=== PATIENT | female | born 1955 | race Caucasian/White ===

== ENCOUNTER 2021-03-28 07:56 | Emergency (ER) | payer MEDICARE, SELFPAY ==
--- NOTE | ~2021-03-28 | XR_ITS ---
EXAMINATION: XR hand RT min 3V DATE: 03/28/2021 09:02 INDICATION: Right thumb dog bite. TECHNIQUE: 3 views of right hand were obtained. COMPARISON: Right wrist radiograph 12/06/2006 FINDINGS: Bone alignment is normal. No fracture. There is mild osteoarthritis of triscaphe joint, fir st carpometacarpal joint, and some of the interphalangeal joints. There is moderate osteoarthritis of fourth distal interphalangeal joint. IMPRESSION: 1. No fracture or radiopaque foreign body. 2. Polyarticular osteoarthritis. Reviewed, dictated and finalized at location A.
[2021-03-28 08:15] VITALS: BP 110/94; PULSE 71; RESP 18; TEMP 36.2; O2SAT 97
--- NOTE | 2021-03-28 08:49 | ED.ANIMALBIT ---
HPI - Animal Bite General Chief Complaint: Animal Bite Stated Complaint: dog bite Time Seen by Provider: 03/28/21 08:48 Source: patient Mode of arrival: ambulatory Limitations: no limitations History of Present Illness HPI narrative: Patient is 65 years old white female had a dog bite to right hand 2-hour prior to arrival. Patient was trying to stop dog bite got bitten by her dog. No other injuries. Unknown last tetanus. No history of diabetes. Related Data Home Medications Medication Instructions Recorded Confirmed atorvastatin 20 mg PO 03/28/21 ergocalciferol (vitamin D2) 1,250 mcg PO 03/28/21 Allergies Allergy/AdvReac Type Severity Reaction Status Date / Time aspirin Allergy Unknown Unknown Verified 03/28/21 08:23 Review of Systems Review of Systems: Narrative: CONSTITUTIONAL: Denies fever, chills, or sweats. EYES: Denies visual changes, redness, or discharge. ENT: Denies rhinorrhea, congestion, sore throat, or otalgia. CARDIOVASCULAR: Denies chest pain, palpitations, or edema. RESPIRATORY: Denies cough or dyspnea. GASTROINTESTINAL: Denies abdominal pain, nausea, vomiting, or diarrhea. GENITOURINARY: Denies dysuria or hematuria. SKIN: Denies rash or itching. MUSCULOSKELETAL: Denies back pain, joint pain, or myalgia. NEUROLOGIC: Denies headache, numbness, or weakness. PSYCHIATRIC: Denies anxiety or depression. [facility] Social History Social History Alcohol intake: current Gender identity (if verbalized by the patient): Female Exam Narrative: Exam Narrative: General appearance: Well-developed, well-nourished Skin: Right hand exam showed multiple puncture wounds dorsally and 2.5 laceration and the palmar side, subcutaneous. Patient is able to flex and extend fingers without any limitation. Vascular: Normal peripheral pulses, normal capillary refill. Musculoskeletal: Normal range of motion, nontender back Neurologic: Alert and oriented ?3, [employer] W[employer]IC[employer] is normal as tested, no gross motor deficit Course Course Emergency Course: Stable Vital Signs Vital signs: Vital Signs Temperature 36.2 C L 03/28/21 08:15 Pulse Rate 71 03/28/21 08:15 Respiratory Rate 18 03/28/21 08:15 Blood Pressure 110/94 H 03/28/21 08:15 Pulse Oximetry 97 03/28/21 08:15 Temperature 36.2 C L 03/28/21 08:15 Pulse Rate 71 03/28/21 08:15 Respiratory Rate 18 03/28/21 08:15 Blood Pressure 110/94 H 03/28/21 08:15 Pulse Oximetry 97 03/28/21 08:15 MDM - Animal Bite MDM Narrative Medical decision making narrative: Patient presents with dog bites puncture wounds and lacerations. The plan to irrigate the bites, tetanus shot, Augmentin. Then discharged to follow-up with Dr. Prater Differential Diagnosis Differential diagnosis: Likely dog bite and other (Bone fracture) Imaging Data Radiologist's impression: Impressions Hand X-Ray 03/28/21 09:09 IMPRESSION: 1. No fracture or radiopaque foreign body. 2. Polyarticular osteoarthritis. Critical Care Time Critical Care Time Critical Care Time: No Discharge Plan Discharge Clinical Impression: Dog bite Qualifiers: Encounter type: initial encounter Qualified Code(s): W54.0XXA - Bitten by dog, initial encounter Patient Disposition: Home, Self-Care Condition: Stable Instructions: Animal Bite (ED) Additional Instructions: Return if symptoms are worsening , call your family physician for appointment, take Tylenol as as needed for aches and pain, continue home medications., Keep right hand elevated, call Dr. Prater for appointment, do not cover the dog bite Prescriptions: New amoxicillin-pot clavulanate [
[2021-03-28] MEDS: TETANUS,DIPHTHERIA,AC PERTUSSIS ADULT (0.5 ML) BOOSTRIX IM (09:35)
[2021-03-28] MEDS: AMOXICILLIN/CLAVULANATE K 875-125 MG TAB 1 TABLET PO (09:35)
[2021-03-28 11:39] VITALS: BP 109/91; PULSE 69; RESP 18; O2SAT 97
== END 2021-03-28 11:40 | disposition home or self-care (01) ==
LOC: ANHED 09:19
PROVIDERS: Emergency Provider Emergency Medicine
DX: S61.451A Open bite of right hand, initial encounter (principal); M19.041 Primary osteoarthritis, right hand; W54.0XXA Bitten by dog, initial encounter; Z23 Encounter for immunization
CPT/HCPCS: 73130; 90471; 90715; 99283; A9270

== ENCOUNTER 2023-02-11 01:15 | Day surgery (SDC) | payer MEDICARE, SELFPAY ==
[2023-02-03 12:06] VITALS: BMI 23.8
--- NOTE | 2023-02-03 12:19 | PC.NURSE ---
Report to the Outpatient Waiting Room, entrance under the green pavilion located off [facility], at time __7:30AM on date ___02/11/23____. Planned Procedure Time: __9:30AM . Time changes happen often and if your time is changed the preop area will call you the afternoon before. - You and your visitor will be asked to self-screen and do not enter if you have any COVID symptoms. - Only one visitor is requested with a max of two and NO children visitors are allowed at this time. - The patient visitor may be requested to leave or wait in car when not with patient due to distancing restrictions. - A mask is optional within the hospital at this time. Patients may have clear liquids (water, carbonated beverages, clear teas, apple juice) until 3 hours prior to surgery with a maximum of 20 ounces. - No food from midnight until time of surgery Take the following medications with a SIP of water the morning of surgery: ___NONE DO NOT STOP ANY OF YOUR OTHER PRESCRIPTION MEDICATIONS PRIOR TO SURGERY ?EXCEPT THE FOLLOWING Medications to discontinue per physician ____HOLD NAPROXEN FOR 5 DAYS PRE-OP PER DR DOBBINS(PER PATIENT) Date to take last dose____02/05/23 Please no make-up, nail wallisian, hairspray, perfume, deodorant, or body powder the day of surgery. No jewelry (including any body piercings) or valuables the day of surgery, leave them at home. Please take a shower or bath the night before, or the morning of, surgery with an antibacterial soap. Wear comfortable, loose fitting clothing. Children are encouraged to wear pajamas. - Jewelry must be removed prior to entering the operating room. Rings and piercings that are not removed may be cut off. - The hospital will not accept responsibility for valuables. - Please leave all valuables, including medications, at home the day of surgery. If you are going home after surgery, a licensed utility worker driver must drive you home. - NO public transportation without another adult if you receive anesthesia. - We recommend that an adult stay with you for 24 hours following discharge. - We also recommend that you do not drive, make important decision, drink alcoholic beverages, or take any drugs that were not prescribed by your health care provider for at least 24 hours after your discharge time. Follow any additional instructions given to you from your surgeon. If you or anyone in your household have experienced Covid symptoms in the past week, please notify your surgeon or the nurse liaison at the phone number below for possible testing. Telephone instructions given to _PATIENT and asked if any additional questions and then verbalized understanding. Patient advised to call surgeon office or pre surgery nurse liaison [phone] if any additional questions.
--- NOTE | 2023-02-10 09:58 | P.PNAN_ITS ---
Anes - Initial Pre Proc Eval Procedure: Operation Date: 02/11/23 09:30 Proposed Procedures p Arthroplasty of the Fourth and Fifth Digits Right Foot, Partial Phalangectomy Fifth Digit Right Foot - Marvin Hoover JR, MD Date/Time: 02/10/23 09:58 Surgeon: Marvin Hoover JR, MD Pre Op Diagnosis: Hammer Toe 4th and 5th Digits Right Foot Patient Data Age: 67 Gender: F Height: 1.73 m Weight: 71 kg Allergies Allergy/AdvReac Type Severity Reaction Status Date / Time No Known Allergies Allergy Verified 02/11/23 07:58 Home Medications Medication Instructions Recorded Confirmed Type atorvastatin 20 mg tablet 20 mg PO DAILY 03/28/21 02/11/23 History ergocalciferol (vitamin D2) 1,250 1,250 mcg PO WEEKLY 03/28/21 02/11/23 History mcg (50,000 unit) capsule cyanocobalamin (vitamin B-12) 1,000 mcg PO DAILY 02/03/23 02/11/23 History 1,000 mcg tablet,extended release naproxen sodium 220 mg tablet 440 mg PO BID PRN Pain 02/03/23 02/11/23 History oxycodone-acetaminophen 5 mg-325 1 tablet PO Q4-6H PRN Pain 02/03/23 02/03/23 History mg tablet Patient hx anesthesia problems: none Family hx anesthesia problems: none Results Review: All pre-operative results and documents have been reviewed as part of the pre- operative evaluation. [facility] Past Medical History Medical History (Updated 02/10/23 @ 09:59 by Jose Luis Lei DO) Hyperlipidemia Surgical History Surgical History (Updated 02/10/23 @ 09:59 by Jose Luis Lei DO) History of appendectomy Social History Social History Smoking status: Never smoker Alcohol intake: current Substance use: never Living arrangements: with family Additional living arrangements comments: DAUGHTER Gender identity (if verbalized by the patient): Female Spiritual care concerns: No Anes - Eval Final PreProcedure Day of Procedure 02/10/23 09:58 Patient weight: normal Heart: regular rate and rhythm Lungs: clear to auscultation Airway: Mallampati scale class II Neurological: alert and oriented Last oral intake: >/= 8 hours ASA classification: II Emergent: no Anesthetic plan: proceed Anesthesia type and monitoring: general GIVS and standard monitoring Results Review: All pre-operative results and documents have been reviewed as part of the pre- operative evaluation. Informed Consent: The patient's anesthetic plan and its attendant risks and benefits were discussed with the patient/family/POA. Questions were solicited and answers provided to the satisfaction of the patient/family/POA.
--- NOTE | ~2023-02-11 | XR_ITS ---
EXAMINATION: XR surgery orthopedic DATE: 02/11/2023 11:46 INDICATION: Hammertoes involving the fourth and fifth digits of the right foot. TECHNIQUE: A single intraoperative fluoroscopic view of right foot was obtained. I was not present. F luoroscopy exposure time was 12 seconds. COMPARISON: None. FINDINGS: There are changes of arthrodesis procedure at fourth proximal interphalangeal joint. IMPRESSION: 1. Arthrodesis procedure of fourth proximal interphalangeal joint. Reviewed, dictated and finalized at location A.
--- NOTE | 2023-02-11 07:13 | WPDHPUPDATE1 ---
History and Physical Update Update Date/Time: 02/11/23 07:13 History and Physical has been reviewed, including an updated exam of the patient. There are NO changes in the patient's condition. Risks, benefits, and alternatives have been discussed and questions answered. Patient agrees to proceed with procedure.
[2023-02-11 07:36] VITALS: BP 119/81; PULSE 61; RESP 16; TEMP 36.2; O2SAT 97
[2023-02-11] MEDS: LACTATED RINGERS 1,000 ML 30 ML IV CONT (08:11)
--- NOTE | 2023-02-11 10:00 | SUR.PREOP ---
pt informed of delay in procedure.
[2023-02-11] MEDS: ceFAZolin 2 GM/D5W 50 ML 2 GM/50 ML BAG IVPB (10:49)
[2023-02-11] MEDS: BUPivacaine HCL 0.5% 10 ML AMP INFILTRATE (11:15)
[2023-02-11] MEDS: LIDOCAINE HCL 2% LOCAL INJ 20 ML VIAL 10 ML INFILTRATE (11:15)
--- NOTE | 2023-02-11 11:41 | W.PM.PROC2 ---
Procedure Note - Detailed Date of Procedure 02/11/23 Pre-op Diagnosis 1. Hammer Toe 4th and 5th Digits Right Foot 2. Heloma molle fourth interdigital space right foot Post-op Diagnosis Same Procedure Performed 1. Hammertoe repair 4th and 5th digits right foot 2 Partial distal phalangectomy right foot 5th digit Surgeon Marvin Hoover JR, DPDelfina Anesthesia MAC and Local Indications Painful fourth interdigital space heloma molle due to hammertoe deformities. Description of Procedure Under mild sedation, the patient was brought in to the operating room, placed on the operating table in the supine position.? A pneumatic ankle tourniquet was placed about the patient's ankle. Following monitored anesthesia care, local anesthesia was obtained about the foot utilizing? mL of a 1:1 mixture of 2% Lidocaine plain and 0.5% Marcaine plain with a modified proximal Pederson block proximal to each corresponding digits. The foot was then scrubbed, prepped, and draped in the usual aseptic manner.? An Esmarch bandage was then used to exsanguinate the patient's foot and the pneumatic ankle tourniquet was then inflated. Attention was directed to the fourth digit where a small linear incision made about the dorsal proximal interphalangeal joint of the fourth digit. All bleeders were cauterized as necessary. The proximal interphalangeal joint was now identified. A transverse tenotomy was created dorsal to the proximal interphalangeal joint, next the head of the proximal phalanx was carefully freed from the capsular and ligamentous structures. The head of the proximal phalanx and base of the middle phalanx was was resected and shaped into a ball and socket joint with the Arthrex mini reamer system for the Dynanite PIP hammertoe straight 12mm implant positioned with standard principles and technique in a cannulated fashion. Care was taken to make sure that adequate bone was resected with Fluoroscopy, also the digit was noted to sit in a more rectus position with the hammertoe deformity reduced. I reapproximated the extensor tendon with 4.0 Vicryl. Next I reapproximated the skin with 4.0 Prolene in Horizontal mattress suture fashion technique in order to maintain the position of the digit in a rectus position. Attention was directed to the fifth digit where a small linear incision made about the dorsal proximal interphalangeal joint of the fifth digit. All bleeders were cauterized as necessary. The proximal interphalangeal joint was now identified. A transverse tenotomy was created dorsal to the proximal interphalangeal joint, next the head of the proximal phalanx was carefully freed from the capsular and ligamentous structures. The head of the proximal phalanx and base of the middle phalanx was was resected and shaped into a ball and socket joint and stabilized with an intramedullary trim it pin. Care was taken to make sure that adequate bone was resected with Fluoroscopy, also the digit was noted to sit in a more rectus position with the adductovarus deformity reduced. I reapproximated the extensor tendon with 4.0 Vicryl. Next I reapproximated the skin with 4.0 Prolene in Horizontal mattress suture fashion technique in order to maintain the position of the digit in a rectus position. I made a small 1cm incision along the distal medial right fifth digit, used a small oscillating saw blade to resect the flare to the base of the distal phalanx to prevent abutment against the fourth digit. I approximated the skin with 4-0 Prolene in simple interrupted suture fashion technique. Upon completion of the procedure, the incision was dressed with Adaptic, 4x4s, Kerlix, and Coban.? The pneumatic ankle tourniquet was then deflated and a prompt hyperemic response was noted to all digits of the foot.? A surgical shoe was then applied. ? The patient did very well with the procedure and the anesthesia.? The patient was transferred to the recovery room with vital signs stable and vascular status in
[2023-02-11 11:52] VITALS: BP 89/52; PULSE 74; RESP 20; O2SAT 94
[2023-02-11 12:20] VITALS: BP 114/58; PULSE 58; RESP 18; O2SAT 96
[2023-02-11 12:50] VITALS: BP 130/57; PULSE 53; RESP 18
--- NOTE | 2023-02-11 13:34 | SUR.PHASEII ---
1310 PT MEETS ANESTHESIA DISCHARGE CRITERIA. PT DRESSED AND WAITING FOR RIDE HOME.
== END 2023-02-11 13:26 | disposition home or self-care (01) ==
PROVIDERS: PCP Internal Medicine; Visit Provider Podiatrist Foot & Ankle Surgery
PROC: (CPT 28285; principal; 2023-02-11 09:30)
DX: M20.41 Other hammer toe(s) (acquired), right foot (principal); L84 Corns and callosities; E78.5 Hyperlipidemia, unspecified
CPT/HCPCS: 28285 ×2; 28126; 99199; C1713; J0690; J1170; J2250; J2370; J2704; J3010; J7120